=== PATIENT | male | born 1985 | race Caucasian/White ===

== ENCOUNTER 2022-09-14 06:46 | Emergency (ER) | payer OTHER, SELFPAY ==
[2022-09-14 06:54] VITALS: BP 170/109; PULSE 77; RESP 20; TEMP 36.5; O2SAT 98; BMI 36.9
--- NOTE | 2022-09-14 07:24 | ED_ITS ---
HPI - Skin/Abscess/Foreign Bdy General Chief complaint: Skin/Abscess/Foreign Body Stated complaint: ?Cyst, ingrown abdomen area Time Seen by Provider: 09/14/22 07:13 Source: patient Mode of arrival: ambulatory Limitations: no limitations History of Present Illness HPI narrative: 37-year-old male came in for evaluation of right groin pain and and right groin painful mass, stated that this started as a pimple like area that the patient try to pop with thick clear pus drainage patient was seen at an urgent care was started on cephalexin, patient been taking the antibiotic with no improvement. Sexually active with 1 partner decline any penile discharge. No fever, no chills. Related Data Previous Rx's Medication Instructions Recorded doxycycline hyclate 100 mg tablet 100 mg PO BID #20 tabs 09/14/22 Allergies Allergy/AdvReac Type Severity Reaction Status Date / Time No Known Allergies Allergy Verified 09/14/22 07:33 Review of Systems Review of Systems: All other systems are reviewed and are negative Constitutional: Reports as per HPI and Reports no additional constitutional complaints Eyes: Reports as per HPI and Reports no additional eye complaints Reports system reviewed and no additional complaints, except as documented Cardiovascular: Reports as per HPI and Reports no additional cardiovascular complaints Respiratory: Reports as per HPI and Reports no additional respiratory complaints Gastrointestinal: Reports as per HPI and Reports no additional gastrointestinal complaints Genitourinary: Reports no additional female genitourinary complaints Musculoskeletal: Reports no additional musculoskeletal complaints Skin/Breast: Reports system reviewed and no additional complaints, except as docu Psychiatric: Reports no additional psychiatric complaints Endocrine: Reports no additional endocrine complaints Hematologic/Lymphatic: Reports no additional hematologic/lymphatic complaints Allergic/Immunologic: Reports no additional allergic/immunologic complaints Reports system reviewed and no additional complaints, except as documented and Reports Abnormal speech present [facility] Social History Social History Alcohol intake: never Smoked in Last 30 Days: No Use of substances other than those prescribed or required for medical reasons: No Advance Directives: No Advance Directives Information Provided: No Physical Exam Vital Signs: Vital Signs: Last Vital Signs Temp 97.7 F 09/14/22 06:54 Pulse 77 09/14/22 06:54 Resp 20 09/14/22 06:54 BP 170/109 H 09/14/22 06:54 Pulse Ox 98 09/14/22 06:54 O2 Del Method 09/14/22 06:54 BMI result Body Mass Index 36.9 Vital signs have been reviewed as appeared to be correct. Blood pressure normal. Heart rate normal. Respiration rate normal. Temperature normal. Oxygen saturation normal. Appearance: Alert. Oriented X3. No acute distress. Head: Normal external exam. Normocephalic. Atraumatic. No Cannon signs noted. No raccoon eyes noted Eyes: PERRLA. EOMI. Conjunctiva and sclera normal. Eyelids normal. ENT: TM's Normal. Pharynx normal. Uvula midline. Moist mucous membranes. No trismus noted. No drooling noted. No muffled voice noted. Neck: Normal inspection. Neck supple. FROM. No adenopathy. Thyroid Normal. No meningeal signs. No neck mass noted. CVS: Normal heart rate and rhythm. Heart sound normal. No murmurs noted. Pulses normal throughout. Respiratory: No respiratory distress. Painless inspiration. Breath sounds normal. No wheezes/rales/rhonchi noted. Chest nontender. No accessory muscle usage noted or decreased air movement noted. Abdomen: Soft and nontender. Bowel sounds normal in all 4 quadrants. No distention noted. No organomegaly noted. No visible injury noted, 2 x 2 cm area of papular rash surrounded by area of redness and tenderness, no fluctuation, no abscess. Back: No CVA tenderness. Full range of motion noted. Skin: Skin warm and dry. Normal skin color. Normal skin turgor. No rashes/lesions/lacerations noted. Extremities: No lower extremity edema. Extremities exhibit normal range of motion. Extremities nontender. Neuro: Oriented X 3. Cranial nerve exam: II-XII are grossly intact No motor deficit. No sensory deficit. Reflexes normal. Course Course Course Narrative: 37-year-old male came in with right groin infected papular rash patient was star matty on Keflex at an urgent care, we will add doxycycline to the patient medication for extra coverage of MRSA. Patient was instructed to return if any fever chills or worsening of his symptoms. Medical Decision Making Differential Diagnosis Differential Diagnoses: The differential diagnosis associated with the presentation includes (STD, cellulitis, subcutaneous abscess.) Discharge Plan Discharge Clinical Impression: Cellulitis Patient Disposition: Home, Self-Care Instructions: Cellulitis (ED) Prescriptions: New doxycycline hyclate 100 mg tablet 100 mg PO BID Qty: 20 0RF Referrals: Robert Alfaro NP [Primary Care Provider] -
[2022-09-14 07:29] VITALS: BP 159/100; PULSE 79; RESP 18; TEMP 36.6; O2SAT 96
[2022-09-14 09:24] LABS: Appearance Urine Clear; Color Urine Yellow; Glucose Urine UA >=1000 mg/dL (Negative); Leukocyte Esterase Urine Negative (Negative); Nitrite Urine Negative (Negative); Specific Gravity - Urine >= 1.030 (1.005-1.025); UMIC TRIGGER UACC YES; Urine Blood Negative (Negative); Urine Ketones 15 mg/dL (Negative); Urine Protein 30 (1+) mg/dL (Neg-Trace)
[2022-09-14 09:26] LABS: Bacteria Urine None Seen (None Seen); Hyaline Casts Urine 0-2 /LPF (0-2); RBC Urine 0-2 /HPF (0-2); Squamous Epithelial Cell Urine 0-2 /HPF (0-2); WBC Urine 0-5 /HPF (0-5)
[2022-09-14 10:57] LABS: CT PCR NOT DETECTED (Not Detect.); NG PCR NOT DETECTED (Not Detect.)
== END 2022-09-14 09:19 | disposition home or self-care (01) ==
PROVIDERS: Emergency Provider Emergency Medicine; PCP Nurse Practitioner
DX: L03.314 Cellulitis of groin (principal); R10.31 Right lower quadrant pain
CPT/HCPCS: 0353U; 81001; 99283; 99284

== ENCOUNTER 2023-04-21 12:06 | Emergency (ER) | payer OTHER, SELFPAY ==
--- NOTE | ~2023-04-21 | XR_ITS ---
EXAMINATION: XR CHEST CLINICAL INFORMATION: Chest pain. COMPARISON: Chest radiographs dated 12/29/2013 (report only). TECHNIQUE: Frontal view of the chest was obtained. FINDINGS: No significant abnormality is noted involving the heart, lungs, mediastinum, bony thorax or soft tissues. A left shoulder arthroplasty is noted. XR/XR chest 1V IMPRESSION: Unremarkable examination.
--- NOTE | 2023-04-21 13:21 | ECG_ITS ---
Test Reason : chest pain Blood Pressure : / mmHG Vent. Rate : 072 BPM Atrial Rate : 072 BPM P-R Int : 146 ms QRS Dur : 100 ms QT Int : 394 ms P-R-T Axes : 023 -07 -15 degrees QTc Int : 431 ms Normal sinus rhythm Moderate voltage criteria for LVH, may be normal variant ( R in aVL , Bienvenido product ) Borderline ECG No previous ECGs available Referred By: Generic ED Physician Electronically Signed By:CARMEN OBRIEN MD
[2023-04-21 13:47] VITALS: BP 166/84; PULSE 70; RESP 18; TEMP 36.7; O2SAT 99; BMI 38.1
[2023-04-21 14:00] LABS: MANUAL DIFF FLAG NO
[2023-04-21 14:03] LABS: Basophils Percent Auto 0.3 % (0-2); Eosinophils Absolute Auto 0.1 X10*3/uL (0.0-0.4); Eosinophils Percent Auto 1.2 % (0-4); Hematocrit 43.2 % (42.0-52.0); Hemoglobin 15.1 g/dl (14.0-18.0); Imm Gran Abs Auto 0.05 X10*3/uL (0.00-0.03); Imm Gran Pct Auto 0.5 % (0.0-0.4); Lymphocytes Absolute Auto 2.4 X10*3/uL (1.2-4.9); Lymphocytes Percent Auto 22.8 % (20-40); Mean Corpuscular Hemoglobin 30.1 pg (27.0-33.0); Mean Corpuscular Volume 86.1 fL (80.0-98.0); Mean Platelet Volume 9.8 fL (9.4-12.4); Monocytes Absolute Auto 0.8 X10*3/uL (0.1-1.2); Monocytes Percent Auto 7.1 % (2-11); Neutrophils Absolute Auto 7.2 x10*3/uL (2.0-8.3); Neutrophils Percent Auto 68.1 % (45-73); Platelet Count 358 X10*3/uL (160-400); Red Blood Count 5.02 X10*6/uL (4.60-5.80); Red Cell Distribution Width 11.7 % (11.0-16.0); White Blood Count 10.5 X10*3/uL (4.8-10.8)
[2023-04-21 14:15] LABS: Anion Gap 20 (12-20); Blood Urea Nitrogen 9 mg/dL (9-16); Carbon Dioxide 17 mmol/L (22-29); Chloride 102 mmol/L (96-108); Creatinine Clr Calc Pharmacy 134.3; Estimated Glomerular Filt Rate > 60; Glucose Random 239 mg/dL (60-115); Potassium 3.7 mmol/L (3.3-5.1); Sodium 135 mmol/L (135-145)
[2023-04-21 14:24] LABS: Troponin-I High Sensitivity < 2.7 ng/L (<3.5-35.0)
[2023-04-21 19:19] VITALS: BP 147/89; PULSE 73; RESP 16; TEMP 36.7; O2SAT 99
[2023-04-21 20:05] LABS: Troponin-I High Sensitivity < 2.7 ng/L (<3.5-35.0)
--- NOTE | 2023-04-21 20:12 | ED.CHESTPAIN ---
HPI - Chest Pain General Chief Complaint: Chest Pain Stated Complaint: Chest Pain X 3 Days Time Seen by Provider: 04/21/23 20:11 Source: patient Mode of arrival: ambulatory Limitations: no limitations History of Present Illness HPI narrative: THIS IS A 38 YEARS OLD THE PATIENT PRESENTED TO THE EMERGENCY DEPARTMENT COMPLAINING OF CHEST WALL PAIN FOR ABOUT 3 DAYS. 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 complaint: chest pain Onset (ago): day(s) (3) Timing of current episode: constant Onset: during rest Pain location: substernal and left chest Pain radiation: none Quality: aching Relieving factors: nothing Exacerbating factors: palpation Risk Factors Coronary artery disease risk factors: hypertension Thoracic aortic dissection risk factors: none Related Data Previous Rx's Medication Instructions Recorded doxycycline hyclate 100 mg tablet 100 mg PO BID #20 tabs 09/14/22 Allergies Allergy/AdvReac Type Severity Reaction Status Date / Time No Known Allergies Allergy Verified 04/21/23 13:50 Review of Systems Review of Systems: Yes all other systems are reviewed and are negative ENT: Reports system reviewed and no additional complaints, except as documented Cardiovascular: Cardiovascular: Reports chest pain Respiratory: Respiratory: Reports no additional respiratory complaints Gastrointestinal: Gastrointestinal: Reports no additional gastrointestinal complaints [facility] Past Medical History Attestation statement: The following information was validated with the patient. [facility] Narrative: HISTORY OF HYPERTENSION Social History Social History Alcohol intake: never Advance Directives: No Advance Directives Information Provided: No Physical Exam Vital Signs: Vital Signs: Last Vital Signs Temp 98.0 F 04/21/23 19:19 Pulse 73 04/21/23 19:19 Resp 16 04/21/23 19:19 BP 147/89 H 04/21/23 19:19 Pulse Ox 99 04/21/23 19:19 O2 Del Method Room Air 04/21/23 19:19 BMI result Body Mass Index 38.1 HE LOOKS WELL IS NONTOXIC Const: General: cooperative Nutritional Appearance: well nourished Orientation/consciousness: patient oriented x3 Limitations: no limitations HEENT: Head: Yes normal to inspection Ears: hearing grossly normal bilaterally General nose exam: Normal external nose present Face and sinus: Yes normal facial exam Mouth: Normal oral and palatal mucosa present Teeth and gingiva: dentition normal Eyes: General: appearance normal, both eyes and all related structures EOM: EOMs intact bilaterally Chest: Chest palpation & inspection: normal inspection of the chest and localized rib tenderness with anteroposterior compression Resp: Effort & Inspection: normal respiratory effort Auscultation: clear to auscultation bilaterally Cardio: Jugular venous distension: no JVD Rate: regular rate Rhythm: regular rhythm GI: Inspection: Yes normal to inspection Palpation (GI): Soft to palpation, not firm and nontender Auscultation: normal bowel sounds Skin: General skin exam: no rashes or lesions noted, elasticity normal and turgor normal Neuro: General: patient oriented x3 Extrem: General: Yes normal to inspection Course Reevaluation(s) Reevaluation #1: FEELING BETTER CXR AND TROPI NEGATIVE PAIN REPRODUCIBLE WILL D/C HOME Time: 21:17 Medications Administered Discontinued Medications Generic Name Dose Route Start Last Admin Trade Name Freq PRN Reason Stop Dose Admin Ibuprofen 800 mg 04/21/23 20:17 04/21/23 20:24 Ibuprofen 800 Mg Tablet PO 04/21/23 20:18 800 mg ONCE ONE Administration Medical Decision Making Medical Decision Making [facility] Narrative: PATIENT PRESENTED WITH 3 DAYS HISTORY OF CHEST PAIN, NO EXERTIONAL, REPRODUCIBLE WITH PALPATION Differential Diagnosis Differential Diagnoses: The differential diagnosis associated with the presentation includes COSTOCHONDRITIS/PNEUMOTHORAX/KS Admission/Observation Consideration of admission/observation: Escalation of care including admission/observation considered Lab Data [facility] Lab Attestation statement: I reviewed the patient's lab results. 04/21/23 13:55 04/21/23 13:55 Labs: Lab Results 04/21/23 04/21/23 Range/Units 13:55 19:21 WBC 10.5 (4.8-10.8) X10*3/uL RBC 5.02 (4.60-5.80) X10*6/uL Hgb 15.1 (14.0-18.0) g/dl Hct 43.2 (42.0-52.0) % MCV 86.1 (80.0-98.0) fL MCH 30.1 (27.0-33.0) pg MCHC 35.0 (31.0-36.0) g/dl RDW 11.7 (11.0-16.0) % Plt Count 358 (160-400) X10*3/uL MPV 9.8 (9.4-12.4) fL Immature Gran % (Auto) 0.5 H (0.0-0.4) % Neut % (Auto) 68.1 (45-73) % Lymph % (Auto) 22.8 (20-40) % [place] % (Auto) 7.1 (2-11) % Eos % (Auto) 1.2 (0-4) % Baso % (Auto) 0.3 (0-2) % Lymph # (Auto) 2.4 (1.2-4.9) X10*3/uL [place] # (Auto) 0.8 (0.1-1.2) X10*3/uL Eos # (Auto) 0.1 (0.0-0.4) X10*3/uL Baso # (Auto) 0.0 (0.0-0.2) X10*3/uL Abs Immat Gran (auto) 0.05 H (0.00-0.03) X10*3/uL Absolute Neuts (auto) 7.2 (2.0-8.3) x10*3/uL Absolute Nucleated RBC 0.000 (0.0-0.012) X10*3/uL Nucleated RBC % (auto) 0.0 (0.0-0.2) /100WBC Sodium 135 (135-145) mmol/L Potassium 3.7 (3.3-5.1) mmol/L Chloride 102 (96-108) mmol/L Carbon Dioxide 17 L (22-29) mmol/L Anion Gap 20 (12-20) BUN 9 (9-16) mg/dL Creatinine 0.95 (0.5-1.4) mg/dL Estim Creat Clear Calc 134.3 Estimated GFR > 60 Random Glucose 239 H (60-115) mg/dL Calcium 9.0 (8.4-10.2) mg/dL Troponin I High Sens < 2.7 < 2.7 (<3.5-35.0) ng/L Independent Interpretation I performed an independent interpretation of an: EKG (RHYTHM RATE [address]-T CHANGES) Chronic Conditions Patient?s care impacted by: Hypertension Discharge Plan Discharge Clinical Impression: Chest pain Patient Disposition: Home, Self-Care Instructions: Chest Pain (DC) Additional Instructions: FOLLOW-UP WITH YOUR PRIMARY CARE PHYSICIAN RETURN TO EMERGENCY ROOM IF YOU WORSE ANY CONCERN Prescriptions: No Action doxycycline hyclate 100 mg tablet 100 mg PO BID Qty: 20 0RF Referrals: Robert Alfaro NP [Primary Care Provider] - 2 days Stand Alone Forms: Work/School Release Interventions: ED Discharge Assessment Last Done: 04/21/23 21:21 Discharge Date/Time: 04/21/23 21:22
[2023-04-21] MEDS: Ibuprofen 800 MG TABLET PO (20:24)
== END 2023-04-21 21:22 | disposition home or self-care (01) ==
PROVIDERS: Emergency Provider Emergency Medicine; PCP Nurse Practitioner
DX: R07.89 Other chest pain (principal); I10 Essential (primary) hypertension; Z79.899 Other long term (current) drug therapy
CPT/HCPCS: 36415; 71045; 80048; 84484; 85025; 93005; 99283; 99284

== ENCOUNTER 2025-05-14 07:24 | Emergency (ER) | payer OTHER, SELFPAY ==
--- NOTE | ~2025-05-14 | XR_ITS ---
EXAMINATION: XR KNEE, LEFT CLINICAL INFORMATION: pain COMPARISON: None available. TECHNIQUE: AP oblique and lateral views of the left knee. FINDINGS: Exostosis at the inferior patellar/patella tendon insertion. Small marginal osteophyte formation and medial tibial plateau. No acute cortical disruption or malalignment. No suprapatellar bursa joint effusion. No subcutaneous edema. No metallic or radiopaque foreign body. No lytic or lasting lesions. XR/XR knee LT 4V IMPRESSION: Mild bicompartmental osteoarthrosis/osteoarthritis. Enthesopathy, patellar tendon. Electronically signed by: Alfredito Singh MD 05/14/2025 07:54 AM EST
[2025-05-14 07:28] VITALS: BP 154/84; PULSE 77; RESP 16; TEMP 36.1; O2SAT 97; BMI 37.1
--- NOTE | 2025-05-14 07:49 | ED.EXTPRO ---
HPI - Extremity Problem General Chief complaint: Extremity Problem Stated complaint: L knee pain x 1 month Time Seen by Provider: 05/14/25 07:48 Source: patient Mode of arrival: ambulatory Limitations: no limitations History of Present Illness ED Provider: NEIL DANG PA-C HPI Narrative: 40-year-old male with no significant pmhx presents to the ED today for evaluation of left knee pain x1 month. Reports pain has been intermittent. Localized to the front of his left knee, no radiation. Reports feeling a cracking sensation at times. Intermittently appears swollen. Denies any redness. He has been taking Tylenol without much improvement. Denies blunt injury/trauma/falls. Denies hx gout. Denies fever, chills, numbness/tingling/weakness of the LLE. No recent travel/ long car rides. Denies calf pain, leg swelling. Related Data Previous Rx's ?Medication ?Instructions ?Recorded doxycycline hyclate 100 mg tablet 100 mg PO BID #20 tabs 09/14/22 prednisone 20 mg tablet 60 mg (3 x 20 mg) PO DAILY 5 days 05/14/25 #15 tabs Allergies Allergy/AdvReac Type Severity Reaction Status Date / Time No Known Allergies Allergy Verified 05/14/25 07:29 Review of Systems Review of Systems: Yes all other systems are reviewed and are negative PMFSH Past Medical History Attestation statement: The following information was validated with the patient. Source: old records reviewed and nursing notes reviewed Social History Social History Alcohol intake: never Advance Directives: No Advance Directives Information Provided: Yes Physical Exam Vital Signs: Vital Signs: Last Vital Signs Temp 97.0 F 05/14/25 08:32 Pulse 77 05/14/25 08:32 Resp 16 05/14/25 08:32 BP 154/84 H 05/14/25 08:32 Pulse Ox 97 05/14/25 08:32 O2 Del Method Room Air 05/14/25 08:32 BMI result Body Mass Index 37.1 hypertensive, vitals are otherwise wnl General: Well appearing, in no acute distress. Skin: Warm, dry, intact. No rashes or lesions. Head: Normocephalic, atraumatic. EENT: Hearing is intact b/l. Conjunctiva clear. PERRLA. EOM intact. Moist mucous membranes.? Cardiac: Chest wall symmetric. RRR Lungs: Normal respiratory effort without accessory muscle use Ext: + left knee without overlying skin changes, deformity, swelling. Full ROM intact with extension/flexion, no pain induced. No palpable deformity, crepitus, warmth, fluctuance. 2+ dp and popliteal pulses. Neuro: AOx3. Normal speech. Ambulating with steady gait. Medications Administered Discontinued Medications Generic Name Dose Route Start Last Admin Trade Name Georgie PRN Reason Stop Dose Admin Ketorolac Tromethamine 30 mg 05/14/25 08:05 05/14/25 08:26 Ketorolac Tromethamine 30 Mg/Ml Vial IM 05/14/25 08:06 30 mg ONCE ONE Administration Medical Decision Making Medical Decision Making MDM Narrative: 40-year-old male with no significant pmhx presents to the ED today for evaluation of left knee pain x1 month. hypertensive, vitals are otherwise wnl. he is well appearing, sitting comfortably. ambulating with steady gait. on exam, left knee without overlying skin changes, deformity, swelling. Full ROM intact with extension/flexion, no pain induced. No palpable deformity, crepitus, warmth, fluctuance. 2+ dp and popliteal pulses. Differential diagnosis includes arthritis, tendonitis, bursitis, MSK sprain/strain. Unlikely gout, pseudogout, Lyme arthritis, DVT, popliteal cyst, neurovascular compromise, threat to limb. Plan for x-rays, pain control and re-evaluation. Differential Diagnosis Differential Diagnoses: The differential diagnosis associated with the presentation includes as above. Admission/Observation Not indicated Independent Interpretation I performed an independent interpretation of an: Plain X-Ray Interpretation: X-ray L knee without fracture Radiology Impression Discussion of test interpretation with radiology: I have reviewed the radiologist's reading. Radiologist Impression: Procedure(s): XR knee LT 4V Accession Number(s): [id number] cc: Ava Adan DO; Randal Ledezma DO~ Reason for Exam: pain EXAMINATION: XR KNEE, LEFT CLINICAL INFORMATION: pain COMPARISON: None available. TECHNIQUE: AP oblique and lateral views of the left knee. FINDINGS: Exostosis at the inferior patellar/patella tendon insertion. Small marginal osteophyte formation and medial tibial plateau. No acute cortical disruption or malalignment. No suprapatellar bursa joint effusion. No subcutaneous edema. No metallic or radiopaque foreign body. No lytic or lasting lesions. XR/XR knee LT 4V IMPRESSION: Mild bicompartmental osteoarthrosis/osteoarthritis. Enthesopathy, patellar tendon. Electronically signed by: Alfredito Singh MD 05/14/2025 07:54 AM EST Prescription Management I considered prescription management with: Other (prednisone) Social Determinants Patient?s care significantly limited by Social Determinants of Health including: Other Social Determinant of Health Critical Care Time Critical Care Time Critical Care Time: No Discharge Plan Discharge Clinical Impression: Left knee pain Patient Disposition: Home, Self-Care Instructions: Knee Pain (ED), Arthralgia (ED) Additional Instructions: You were evaluated in the ED today for left knee pain. The xray of your left knee shows inflammatory/ arthritic changes. No fractures. Your exam is reassuring. You were treated with an anti inflammatory in the ED today. I am sending you home on a 5 day course of prednisone to help with any inflammation/ pain. Please follow up with your PCP, you may require physical therapy. They will be able to prescribe this I have also provided you with a referral to an orthopedic doctor. You may call them to establish care. Return with any new or worsening symptoms. In the case of an emergency call 911. XR knee LT 4V IMPRESSION: Mild bicompartmental osteoarthrosis/osteoarthritis. Enthesopathy, patellar tendon. Prescriptions: New prednisone 20 mg tablet 60 mg PO DAILY 5 Days Qty: 15 0RF No Action doxycycline hyclate 100 mg tablet 100 mg PO BID Qty: 20 0RF Referrals: [facility] [Provider Group] Randal Ledezma DO [Primary Care Provider, Medical] Interventions: ED Discharge Assessment Last Done: 05/14/25 08:32 Discharge Date/Time: 05/14/25 08:32 Print Language: [place]
--- OUTSIDE RECORDS SUMMARY | 2025-05-14 07:50 | XMS_ITS | Data Portability ---
Author Organization [facility] [address] Address [address] [place] [address] Assessment No assessment recorded. Plan of Treatment Reminders Order Date Submit Date Provider Last Modified By Organization Details Last Modified Time Details Appointments None recorded. Lab None recorded. Referral None recorded. Procedures None recorded. Surgeries None recorded. Imaging None recorded. Medication Orders cephalexin 500 mg capsule 2022 023 [facility][id number], [address] [place], [address], 11:09:57 Patient TargetsNo targets recorded. Patient Instructions Encounter Date Encounter Id Patient Instructions Last Modified By Organization Details Last Modified Time 09/12/2022 [id number] A skin abscess i s a bacterial infection that forms a pocket of pus. A boil is a kind of skin abscess. The doctor may have cut an opening in the abscess so that the pus can drain out. You may have gauze in the cut so that the abscess will stay open and keep draining. You may need antibiotics. You will need to follow up with your doctor to make sure the infection has gone away. The doctor has checked you carefully, but problems can develop later. If you notice any problems or new symptoms, get medical treatment right away. How can you care for yourself at home? Apply warm and dry compresses, a heating pad set on low, or a hot water bottle 3 or 4 times a day for pain. Keep a cloth between the heat source and your skin. If your doctor prescribed antibiotics, take them as directed. Do not stop taking them just because you feel better. You need to take the full course of antibiotics. Take pain medicines exactly as directed. If the doctor gave you a prescription medicine for pain, take it as prescribed. If you are not taking a prescription pain medicine, ask your doctor if you can take an erhf-gyf-ufsrpsy medicine. Keep your bandage clean and dry. Change the bandage whenever it gets wet or dirty, or at least one time a day. If the abscess was packed with gauze: Keep follow-up appointments to have the gauze changed or removed. If the doctor instructed you to remove the gauze, follow the instructions you were given for how to remove it. After the gauze is removed, soak the area in warm water for 15 to 20 minutes 2 times a day, until the wound closes. [email or web address] Not available 09/12/2022 11:09:55 Reason for Referral None Reported. Problems Name Problem SNOMED Code Status Onset Date Resolution Date Notes Provider Name and Address Organization Details Recorded Time Essential hypertension 40117439 Active 2022 IRIS COUVERTRAMYA R null, PA - [facility] 3 10:32:03 Diabetes mellitus 22836037 Active 2022 IRIS COUVERTRAMYA R null, PA - [facility] 3 10:32:10 Problem Notes None recorded. Procedures Surgical History Date Name Laterality Status Provider Name and Address Organization Details Recorded Time Appendectomy completed IRIS COUVERTENMANUEL PA - [facility] 09/12/2022 10:33:25 total shoulder replacement completed IRIS COUVERTIER PA - [facility] 09/12/2022 10:33:47 Imaging Results None recorded. Procedure Notes None recorded. Medical Equipment None Reported. Allergies No known drug allergies Medications Name Sig Start Date Stop Date Status Note LastModified by Organization Details LastModified Time metformin 500 mg tablet TAKE 1 TABLET BY MOUTH TWICE A DAY 09/12 completed Not Available Not Available Not Available miconazole nitrate 2 % topical cream APPLY TOPICALLY 2 TIMES A DAY,X7 DAYS 09/12 completed Not Available Not Available Not Available valacyclovi r 1 gram tablet TAKE 1 TABLET BY MOUTH TWICE A DAY FOR 10 DAYS 09/12 completed Not Available Not Available Not Available lisinopril 20 mg tablet TAKE 1 TABLET BY MOUTH EVERY DAY active Not Available Not Available No t Available ciprofloxac in 500 mg tablet TAKE 1 TABLET BY MOUTH TWICE A DAY 09/12 completed Not Available Not Available Not Available pantoprazol e 20 mg tablet,mindi yed release TAKE 1 TABLET BY MOUTH EVERY DAY 09/12 completed Not Available Not Available Not Available hydrocortis one 2.5 % topical cream with perineal applicator APPLY 1 GRAM TO THE SKIN FOUR TIMES A DAY NEEDED EXTERNALL Y TO HEMORRHOI D AFTER BOWEL MOVEMENT 09/12 completed Not Available Not Available Not Available cephalexin 500 mg capsule Take 1 capsule every 8 hours by oral route with meals for 10 days. 2022 active Not Available Not Available Not Avai lable oxycodone 5 mg tablet TAKE 1 TABLET BY MOUTH EVERY 6 HOURS NEEDED FOR PAIN 09/12 completed Not Available Not Available Not Available Jardiance 25 mg tablet TAKE 1 TABLET BY MOUTH EVERY DAY IN THE MORNING active Not Available Not Available No t Available Vitals Date Recorded Body height Body mass index (BMI) Body weight Body temperature Respiratory rate Heart rate Oxygen saturation Oxygen saturation in Arterial blood by Pulse oximetry Systolic And Diastolic Provider Name and Address Organization Details Last Updated DateTime 175.26 cm 36.9 kg/m2 549679. 09 g 98.5 [degF] 20 /min 84 /min 97 % 97 % 146/88 mm[Hg] MAMTA Simon PA - [facility] 10:36:34 Social History Question Answer Notes LastModified by [employer] Details LastModified Time Tobacco Smoking Status Never Smoker LU Johnson [facility] 09/12/2022 10:33:08 What Is Your Water Source? City Information not available 09/12/2022 What Is Your Heat Source? Gas Information not available 09/12/2022 Have You Had Direct Contact, Or Contact During Intimacy, With Monkeypox Rash, Scabs, Or Body Fluids From A Person With Monkeypox? No Information not available 09/12/2022 Have You Recently Traveled Abroad? No Information not available 09/12/2022 Sex: Unknown Functional Status Question Answer Note LastModified by [employer] Details LastModified Time Do you use any illicit or recreational drugs? No Information not available 09/12/2022 Do you or have you ever used any other forms of tobacco or nicotine? No Information not available 09/12/2022 What is your level of alcohol consumption? Occasional Information not available 09/12/2022 Mental Status None recorded. Family History Relationship Description Onset Age of this Age Resolved Age Notes LastModified by Organization Details LastModified Time Father No current problems or disability Not available 10:32:32 Father Hypertensive disorder Not available 10/2022 10:32:49 Mother No current problems or disability Not available 10:32:32 Maternal Grandmother Diabetes mellitus Not available 10/2022 10:33:00 Medical History No medical history recorded. Past Encounters Encounter ID Performer Location Encounter Start Date Encounter Closed Date Diagnosis/Indication Diagnosis SNOMED-CT Code Diagnosis ICD10 Code Diagnosis IMO Codes Diagnosis Note [id number] [address] [place] [address] 09/11/2017 10:51:06 09/11/2017 12:13:33 [id number] [address] [place] [address] 06/01/2020 10:00:02 06/01/2020 14:20:20 [id number] [address] [place] [address] 07/25/2018 13:37:47 07/25/2018 14:19:35 [id number] [address] [place] [address] 10/12/2020 16:21:31 10/12/2020 16:46:15 [id number] [address] [place] [address] 08/09/2020 11:59:12 08/09/2020 14:19:18 [id number] Ovidio Coker [facility] [address] [address] [place] [address] SABRINA Cervantes [address] 09/12/2022 09:15:19 09/12/2022 11:15:11 Cellulitis and abscess of abdominal wall 099843120 L02.211 Health Concerns Section Related Observation LastModified by Organization Detai ls LastModified Time None Recorded Concern Status LastModified by Organization Details LastModified Time None Recorded Advance Directives Directive None Recorded Payers Insurance Date Sequence Insurance Name Policy Number Policy العلي Covered Member ID العلي Member ID Guarantor Name 09/12/2022 1 [facility] [employer] - HEALTH NET PLAN (MEDICAID HMO) [id number] Kareem Zelaya [id number] Kareem Zelaya Notes Date Note Type Note Provider Name and Address Organization Details Recorded Time 09/12/2022 text/html small abscess below umbilicus measuring 3 x 3 cm x 4-5 days. erythema, tender upon palpation , no drainage . patient is diabetic. Ovidio Coker NP [address] [place], [address], PA - [facility] 09/12/2022 11:10:15
--- OUTSIDE RECORDS SUMMARY | 2025-05-14 07:50 | XMS_ITS | Clinical Summary ---
Author Organization [facility] Address [address] [address] Phone Care Team Providers Care Mold Stacker Name Role Phone Conor Hardwick Jp, MD Primary Care Provider [phone] Allergies No known active allergies Medications citalopram (CELEXA) 40 MG tablet Take 40 mg by mouth daily. Active amLODIPine (NORVASC) 10 MG tablet Take 10 mg by mouth daily. Active lisinopril (PRINIVIL,ZESTRIL) 20 MG tablet Take 20 mg by mouth daily. Active aspirin 325 MG tablet Take 1 tablet (325 mg total) by mouth daily. 28 tablet 8 Active docusate sodium (COLACE) 100 MG capsule Take 1 capsule (100 mg total) by mouth 2 (two) times a day. 40 capsule 8 Active ondansetron (ZOFRAN-ODT) 4 MG disintegrating tablet Take 1 tablet (4 mg total) by mouth every 6 (six) hours as needed. 20 tablet 8 Active oxyCODONE 5 MG immediate release tablet Take 1-2 tablets (5-10 mg total) by mouth every 4 (four) hours as needed for moderate pain. Pt. may request partial fill 50 tablet 8 Active Active Problems Problem Noted Date Diagnosed Date Shoulder arthritis 11/16/2017 Hypertension 05/24/2017 Primary osteoarthritis of left shoulder 04/28/20 17 Social History Tobacco Use Types Packs/Day Years Used Date Smoking Tobacco: Never Smokeless Tobacco: Never Alcohol Use Standard Drinks/Week Comments Yes 0 (1 standard drink = 0.6 oz pur e alcohol) occaissonally Education Answer Date Recorded Are you interested in more education? Not on halie e 11/06/2022 Are you concerned about learning? Not on file 11/06/2022 No 11/06/2022 No 11/06/2022 Digital Access Answer Date Recorded No 12/07/2022 No 12/07/2022 No 12/07/2022 Reliable internet access at home? Not on file 12/07/2022 Device with a working camera? Not on file Sex and Gender Information Value Date Recorded Sex Assigned at Not on file Legal Sex Male 2:54 PM EDT Gender Identity Not on file Sexual Orientation Not on file Last Filed Vital Signs Vital Sign Reading Time Taken Comments Blood Pressure 154/72 11/17/2017 11:35 AM EDT Pulse 62 11/17/2017 11:35 AM EDT Temperature 36.1 C (96.9 F) 11/17/2017 11:35 AM EDT Respiratory Rate 18 11/17/2017 11:35 AM EDT Oxygen Saturation 96% 11/17/2017 11:35 AM EDT Inhaled Oxygen Concentration - - Weight 108.9 kg (240 lb) 11/16/2017 10:42 AM EDT Height 179.8 cm (5' 10.8 ) 11/16/2017 10:42 AM E DT Body Mass Index 33.66 11/16/2017 10:42 AM EDT Plan of Treatment Health Maintenance Due Date Last Done Comments Adult Td,Tdap Booster 1986 BLOOD PRESSURE 1986 LIPID PANEL 1986 DEPRESSION SCREENING 1998 HEPATITIS C SCREENING 01/08/2004 HIV ONE-TIME SCREENING (18-6 5 YEARS) 01/08/2004 CREATININE LEVEL 11/17/2018 11/17/2017, 11/11/2017 POTASSIUM LEVEL 11/17/2018 11/17/2017, 11/11/2017 INFLUENZA VACCINE (#1) 2025 COVID-19 VACCINE (2 - 2024-2 6 season) 2025 10/14/2020 SMOKING STATUS SCREENING (On ce After 26 Yrs) Completed 11/16/2017 HEPATITIS A VACCINES Aged Out No long er eligible based on patient's age to complete this topic HIB VACCINES Aged Out No longer eligi ble based on patient's age to complete this topic MENINGOCOCCAL VACCINES (ACWY) Aged Out No longer eligible based on patient's age to complete this topic MENINGOCOCCAL VACCINES (B) Aged Out N o longer eligible based on patient's age to complete this topic PNEUMOCOCCAL VACCINES (0-49 years) Aged Out No longer eligible b ased on patient's age to complete this topic Medical Devices Implanted Type Area Threader Device Identifier Shelf Expiration Date Model / Serial / Lot Plate Bone 420mm Button Sterile Titanium 7 Hole Ea - [id number] Implanted:Qty: 1 on 11/16/2017 by César Laguerre MD at [facility] NODATA Left: Shoulder SYNTHES 482.823 / / Description:no lot# or exp d ate Head Humeral Simpliciti 48 X 18 - [id number] Implanted:Qty: 1 on 11/16/2017 by César Laguerre MD at [facility] Left: Shoulder [employer] 12/23/2021 [id number] / [id number] / Nucleus Cementless Sz3 Simpliciti Ea - [id number] Implanted:Qty: 1 on 11/16/2017 by César Laguerre MD at [facility] Left: Shoulder [employer] 05/17/2022 [id number] / [id number] / Aequalis Perform Glenoid Cortiloc M40 Shoulder 02 Nc - [id number] Implanted:Qty: 1 on 11/16/2017 by César Laguerre MD at [facility] Left: Shoulder [employer] 12/18/2021 [id number] / [id number] / Cement Bone 40gr Palacos R Plus G Single Dose Daron/1ea - [id number] Implanted:Qty: 1 on 11/16/2017 by César Laguerre MD at [facility] Left: Shoulder BRAYDEN / [employer] 11/08/2020 [id number] / [id number] Procedures Procedure Name Priority Date/Time Associated Diagnosis Comments BASIC METABOLIC PANEL (BMP) Routine 11/17/2017 4:40 AM EDT from Last 3 Months or Most Recently Relevant to Health Maintenance Results * (ABNORMAL) Basic metabolic panel (11/17/2017 4:40 AM EDT) SODIUM 134(L) 135 - 145 mmol/L [facility] POTASSIUM 4.2 3.4 - 5.0 mmol/L [facility] CHLORIDE 98 98 - 108 mmol/L [facility] CO2 21(L) 23 - 32 mmol/L [facility] BUN 9 8 - 25 mg/dL [facility] CREATININE 0.85 0.60 - 1.50 mg/dL [facility] GLUCOSE 162(H) 70 - 110 mg/dL [facility] CALCIUM 8.7 8.5 - 10.5 mg/dL [facility] EGFR 116 >59 mL/min/1. 73m2 [facility] Comment:If patient is black, multiply result by 1.159. Estimated glomerular filtration rate calculated using the CKD-EPI equation. ANION GAP 15 3 - 17 mmol/L [facility] Blood 11/17/2017 4:40 AM EDT 11/17/2017 5:34 AM EDT us César Laguerre MD LAB BLOOD BKR ORDERABLES Final Result [address] [address] from Last 3 Months or Most Recently Relevant to Health Maintenance Insurance [facility] S5 TechHEALTH MCO mInfo [employer]SS[employer]Spark[employer] MCO S5 TechHEALTH MCO S5 TechHEALTH MCO Bright!Tax MCO Bright!Tax O S5 TechF F [facility] M[facility] Advance Directives For more information, please contact: [phone] (9AM - 5PM [facility], Wednesday-Wednesday) * Full Code (Presumed) (Latest Code Status on File) Date Activated Date Inactivated Comments 11/16/2017 5:29 PM 11/17/2017 4:23 PM Care Teams Mold Stacker Relationship Specialty Start Date End Date Conor Hardwick Jp, MD [email or web address] PCP - General Orthopedic Surgery 05/11/17 Additional Source Comments The information contained in this document represents components of the legal health record. It is not the complete legal health record.[facility]
--- OUTSIDE RECORDS SUMMARY | 2025-05-14 07:50 | XMS_ITS | Encounter Summary ---
Author Organization [facility] Address [address] [place] [address] Phone Care Team Providers Care Medical Administrative Technician Name Role Phone Randal Ledezma DO Primary Care Provide r Conor Hardwick Jp, MD Primary Care Provider [phone] Encounter Details Date Type Department Care Team (Late st Contact Info) Description 04/28/2017 Procedure Pass [facility] [address] [place] [address] Social History Tobacco Use Types Packs/Day Years Used Date Smoking Tobacco: Never Smokeless Tobacco: Never Alcohol Use Standard Drinks/Week Comments No 0 (1 standard drink = 0.6 oz pur e alcohol) Sex and Gender Information Value Date Recorded Sex Assigned at Not on file Legal Sex Male 2:54 PM EDT Gender Identity Not on file Sexual Orientation Not on file documented as of this encounter Plan of Treatment Not on file documented as of this encounter Visit Diagnoses Not on filedocumented in this encounter Care Teams Medical Administrative Technician Relationship Specialty Start Date End Date Randal Ledezma DO [address] [place] [id number] PCP - General Internal Medicine 02/11/17 05/10/17 Conor Hardwick Jp, MD [address] [place] [id number] [email or web address] PCP - General Orthopedic Surgery 05/11/17 documented as of this encounter Additional Source Comments The information contained in this document represents components of the legal health record. It is not the complete legal health record.[facility]
--- OUTSIDE RECORDS SUMMARY | 2025-05-14 07:50 | XMS_ITS | Clinical Summary ---
[facility] Organization [facility] Address [address] [place] [address] Care Team Providers Care Assembler Bicycle Name Role Phone Unavailable Primary Care Provider Unavailabl e Social History Tobacco Use Types Packs/Day Years Used Date Smoking Tobacco: Never Assessed Sex and Gender Information Value Date Recorded Sex Assigned at Not on file Legal Sex Male 2:56 PM EST Gender Identity Not on file Sexual Orientation Not on file Plan of Treatment Health Maintenance Due Date Last Done Comments Hepatitis B Vaccines (1 of 3 - 19+ 3-dose series) 2005 HPV Vaccines (1 - 3-dose SCD M series) 2013 DTaP,Tdap,and Td Vaccines (2 - Td or Tdap) 10/12/2019 10/11/2009 Depression Screening 07/12/2024 COVID-19 Vaccine (1 - 2023-2 5 season) 2025 Influenza Vaccine (#1) 2025 RSV Immunization Adult Patie nts (1 - 1-dose 75+ series) 2061 HIB Vaccines Aged Out No longer eligi ble based on patient's age to complete this topic Hepatitis A Vaccines Aged Out No long er eligible based on patient's age to complete this topic IPV Vaccines Aged Out No longer eligi ble based on patient's age to complete this topic MMR Vaccines Aged Out No longer eligi ble based on patient's age to complete this topic Meningococcal ACWY Vaccine Aged Out N o longer eligible based on patient's age to complete this topic Meningococcal B Vaccine Aged Out No l onger eligible based on patient's age to complete this topic Pneumococcal Vaccine: Pediat rics (0 to 5 Years) and At-Risk Patients (6 to 49 Years) Aged Out No longer eligi ble based on patient's age to complete this topic RSV Immunization Patients Un gracie 20 months Aged Out No longer eligible b ased on patient's age to complete this topic Varicella Vaccines Aged Out No longer eligible based on patient's age to complete this topic
--- OUTSIDE RECORDS SUMMARY | 2025-05-14 07:50 | XMS_ITS | Encounter Summary ---
Author Organization [facility] Address [address] [place] [address] Phone Care Team Providers Care Yacht Master Name Role Phone Randal Ledezma DO Primary Care Provide r Conor Hardwick Jp, MD Primary Care Provider [phone] Encounter Details Date Type Department Care Team (Late st Contact Info) Description 03/12/2017 Procedure Pass [facility] [address] [place] [address] Social History Tobacco Use Types Packs/Day Years [...] on filedocumented in this encounter Care Teams Yacht Master Relationship Specialty Start Date End Date Randal Ledezma DO [address] [address] PCP - General Internal Medicine 02/11/17 05/10/17 Conor Hardwick Jp, MD [address] [facility] [address] [place] [address] [email or web address] PCP - General Orthopedic Surgery 10/31/17 documented as of this encounter Additional Source Comments The information contained in this document represents components of the legal health record. It is not the complete legal health record.[facility]
--- OUTSIDE RECORDS SUMMARY | 2025-05-14 07:50 | XMS_ITS | Encounter Summary ---
Author Organization [facility] Address [address] [facility] [address] [place] [address] Phone Care Team Providers Care Buildings And Grounds Director Name Role Phone Conro Hardwick Jp, MD Primary Care Provider [phone] Encounter Details Date Type Department Care Team (Late st Contact Info) Description 11/16/2017 Procedure Pass [facility] [address] [place] [address] Social History Tobacco Use Types Packs/Day Years Used Date Smoking Tobacco: Never Smokeless Tobacco: Never Alcohol Use Standard Drinks/Week Comments Yes 0 (1 standard drink = 0.6 oz pur e alcohol) occaissonally Sex and Gender Information Value Date Recorded Sex Assigned at Not on file Legal Sex Male 2:54 PM EDT Gender Identity Not on file Sexual Orientation Not on file documented as of this encounter Plan of Treatment Not on file documented as of this encounter Visit Diagnoses Not on filedocumented in this encounter Care Teams Buildings And Grounds Director Relationship Specialty Start Date End Date Conor Hardwick Jp, MD [email or web address] PCP - General Orthopedic Surgery 05/11/17 documented as of this encounter Additional Source Comments The information contained in this document represents components of the legal health record. It is not the complete legal health record.[facility]
--- OUTSIDE RECORDS SUMMARY | 2025-05-14 07:50 | XMS_ITS | Encounter Summary ---
Author Organization [facility] Address [address] [place] [address] Phone Care Team Providers Care Lithographic Photographer Apprentice Name Role Phone Conor Hardwick Jp, MD Primary Care Provider [phone] Encounter Details Date Type Department Care Team (Late st Contact Info) Description 06/02/2017 Procedure Pass [facility] [place] [address] [facility], [address] [place] [address] Social History Tobacco Use Types Packs/Day Years [...] on filedocumented in this encounter Care Teams Lithographic Photographer Apprentice Relationship Specialty Start Date End Date Conor Hardwick Jp, MD [email or web address] PCP - General Orthopedic Surgery 05/11/17 documented as of this encounter Additional Source Comments The information contained in this document represents components of the legal health record. It is not the complete legal health record.[facility]
[2025-05-14 08:32] VITALS: BP 154/84; PULSE 77; RESP 16; TEMP 36.1; O2SAT 97
== END 2025-05-14 08:32 | disposition home or self-care (01) ==
PROVIDERS: Emergency Provider Emergency Medicine; PCP Internal Medicine
DX: M25.562 Pain in left knee (principal); I10 Essential (primary) hypertension
CPT/HCPCS: 73564; 96372; 99283; 99284; J1885

== ENCOUNTER → 2025-05-14 07:38 | Outpatient (BNV) | payer OTHER, SELFPAY | PROVIDERS: Emergency Provider Emergency Medicine; PCP Internal Medicine; Visit Provider Radiology Diagnostic Radiology | DX: M25.562 Pain in left knee (principal) | CPT/HCPCS: 73564 ==

== ENCOUNTER 2025-06-15 15:32 | Emergency (ER) | payer OTHER, SELFPAY ==
--- NOTE | ~2025-06-15 | CT_ITS ---
EXAMINATION: CT ABDOMEN AND PELVIS WITHOUT CONTRAST CLINICAL INFORMATION: Flank pain, hematuria, history of renal stones. COMPARISON: None available. TECHNIQUE: Multidetector volumetric imaging was performed from the superior aspect of the liver through the pubic symphysis. Sagittal and coronal reformatted images were obtained on the technologist's workstation. This CT examination was performed using dose optimization techniques as appropriate, variously including the following: *Automated exposure control *Adjustment of mA and/or kV according to patient size (this includes techniques or standardized protocols for targeted exams where dose is matched to indication/reason for exam; i.e. extremities or head) *Use of iterative reconstruction technique FINDINGS: LUNG BASES: The visualized lung bases are unremarkable. LIVER, GALLBLADDER, AND BILIARY TREE: The unenhanced liver is normal in size, shape, and attenuation. No focal hepatic lesion or biliary ductal dilatation is present. The gallbladder is contracted but otherwise appears normal. PANCREAS: Unremarkable. SPLEEN: Unremarkable. ADRENAL GLANDS: Unremarkable. KIDNEYS AND URETERS: The kidneys are normal in size, shape, and attenuation. No hydronephrosis, hydroureter, or calculi seen. No perinephric stranding. BLADDER: Unremarkable. GASTROINTESTINAL TRACT: The stomach is distended with a recent meal. The duodenum is normal. The small bowel is normal in caliber and course without wall thickening or dilatation. Normal appendix is visualized. Mobile cecum noted. The colon is normal in caliber, course, and appearance. No wall thickening or inflammation. The rectum has a normal appearance. PERITONEUM: No free air or ascites. ABDOMINAL WALL: Normal. There is no significant hernia present. LYMPH NODES: No abnormal lymphadenopathy is present. VASCULAR: Unremarkable. PELVIC VISCERA: The prostate and seminal vesicles are unremarkable. OSSEOUS STRUCTURES: No suspicious lytic or blastic bone lesions. Mild degenerative changes of the hip joints noted. CT/CT abdomen pelvis wo IV con IMPRESSION: 1. No urological calculus or obstruction identified. No acute findings in the abdomen or pelvis. 2. Mild degenerative changes in the bilateral hip joints. Electronically signed by: Hakeem Gasca MD 06/15/2025 04:48 PM [facility]
[2025-06-15 15:51] VITALS: BP 180/89; PULSE 86; RESP 18; TEMP 36.2; O2SAT 98; BMI 40.1
--- NOTE | 2025-06-15 15:51 | ED_ITS ---
HPI - General Adult General Chief complaint: Urogenital-Male Stated complaint: Vomiting blood Time Seen by Provider: 06/15/25 18:22 Source: patient Mode of arrival: ambulatory Limitations: no limitations History of Present Illness ED Provider: Carlene Helm PA-C HPI narrative: Patient is a 40 year old assigned male at with a history of diabetes and kidney stones presenting to the emergency department today after having blood in his urine. Patient states that this morning he urinated a white stone like structure out and had blood in his urine afterwards. Patient states that he is not having any pain or other penile discharge. Patient states that he was told by his primary care provider that he had kidney stones and they'd pass on his own. Patient states that he was concerned because he is continuing to have blood in his urine even after he believes he passed the stone. . Patient denies any other complaints at this time. Relieving factors: none Exacerbating factors: none Treatments prior to arrival: none Related Data Previous Rx's ?Medication ?Instructions ?Recorded doxycycline hyclate 100 mg tablet 100 mg PO BID #20 ta bs 09/14/22 prednisone 20 mg tablet 60 mg (3 x 20 mg) PO DAILY 5 days 05/14/25 #15 tabs Allergies Allergy/AdvReac Type Severity Reaction Status Date / Time No Known Allergies Allergy Verified 06/15/25 15:58 Review of Systems 2 Constitutional: Constitutional: Reports as per HPI Eyes: Eyes: Reports as per HPI ENT: Reports as per HPI Cardiovascular: Cardiovascular: Reports as per HPI Respiratory: Respiratory: Reports as per HPI Gastrointestinal: Gastrointestinal: Reports as per HPI Genitourinary: Genitourinary: Reports as per HPI Musculoskeletal: Musculoskeletal: Reports as per HPI Integumentary/Breasts: Skin/Breast: Reports as per HPI Neurologic: Reports as per HPI Psychiatric: Psychiatric: Reports as per HPI Endocrine: Endocrine: Reports as per HPI Hematologic/Lymphatic: Hematologic/Lymphatic: Reports as per HPI Allergic/Immunologic: Allergic/Immunologic: Reports as per HPI PMF Past Medical History Attestation statement: The following information was validated with the patient. Source: old records reviewed and nursing notes reviewed Social History Social History Alcohol intake: never Advance Directives: No Advance Directives Information Provided: No Do you have a plan to hurt others: No Plan Physical Exam ED Vital Signs: Vital Signs - 24 hr 06/15/25 15:51 06/15/25 18:26 06/15/25 18:30 Temperature 97.1 F 97.3 F 97.3 F Pulse Rate 86 85 85 Respiratory Rate 18 18 18 Blood Pressure 180/89 H 158/87 H 158/87 H Pulse Oximetry 98 98 98 Oxygen Delivery Method Room Air Room Air Room Air BMI result Body Mass Index 40.1 Const General: cooperative, no acute distress, alert and awake Nutritional Appearance: well nourished Orientation/consciousness: patient oriented x3 HENMT Head: Yes normal to inspection and Yes atraumatic Ears: hearing grossly normal bilaterally and external ears normal General nose exam: Normal external nose present, no nasal discharge noted and no epistaxis Face and sinus: Yes normal facial exam, No abrasion and No laceration Mouth: Normal oral and palatal mucosa present, no drooling and no muffled voice Eyes General: appearance normal, both eyes and all related structures Periorbital: periorbital findings normal Eyelids: Yes eyelids normal Conjunctivae: conjunctivae normal Pupils: Equal, round and reactive pupils present EOM: EOMs intact bilaterally Neck Neck: Yes normal visual inspection and Yes full ROM Resp Effort & Inspection: normal respiratory effort and able to speak in complete sentences Neuro General: patient oriented x3, moves all extremities and CN's II-XI intact bilaterally Cranial nerves: Yes Equal, round and reactive pupils present Cognition (Neuro): normal cognition Extrem General: Yes normal to inspection, Yes full ROM and Yes capillary refill normal Psych Appearance: grossly normal Mental Status: mental status grossly normal Affect: normal affect Attitude: cooperative Thought process: Normal thought process present Thought content: Normal thought content present Insight: Good insight present (Psych) Course Course Course Narrative: Rapid medical examination performed in triage by Carlene Helm PA-C: Patient is a 40 year old assigned male at presenting to the emergency department with urinating blood. Patient states that he went to urinate today and he urinated blood. Detailed physical exam and review of systems are deferred to the retail equipment associate. Labs and imaging ordered. Patient placed back in the waiting room pending room availability and results. Medical Decision Making Medical Decision Making MDM Narrative: Patient is a 40 year old assigned male at with a history of diabetes and kidney stones presenting to the emergency department today after having blood in his urine. Patient's physical exam was as noted in the physical exam portion of this note. Patient's blood work showed a WBC count of 12.5 and glucose of 213 - otherwise unremarkable. Patient's elevated glucose is consistent with his diabetic status. Patient's elevated WBC count is likely reactive as he has no evidence of an infectious process. Patient's urine showed blood but no evidence of urinary tract infection. Patient's CT abd/pelvis showed no acute process. Patient's clinical presentation is most consistent with a passed kidney stone. I explained my physical exam findings as well as all test results to the patient. I answered all questions asked by the patient. I stressed the importance of the patient taking his medication as directed (either prescribed or as the over the counter packaging recommends). I stressed the importance of the patient following up with his primary care provider and the urology team. I stressed the importance of the patient returning to the emergency department immediately if his symptoms were to worsen or if he were to develop any dizziness, shortness of breath, difficulty breathing, chest pain, blurry vision, loss of vision, nausea, vomiting, abdominal pain, fever, chills, back pain, or any other complaints. Patient verbalized agreement and understanding with this treatment plan and discharge. Differential Diagnosis Differential Diagnoses: The differential diagnosis associated with the presentation includes Kidney stone Passed kidney stone UTI Hematuria Admission/Observation Consideration of admission/observation: Escalation of care including admission/observation considered Patient would have been admitted to the hospital had his work up had any findings where hospital admission was appropriate and his clinical presentation warranted hospital admission. Lab Data [facility] Lab Attestation statement: I reviewed the patient's lab results. My interpretation of these results are in the [facility] Rationale portion of this note. 06/15/25 17:30 06/15/25 17:30 Labs: Lab Results 06/15/25 Range/Units 17:30 WBC 12.5 H (4.8-10.8) X10*3/uL RBC 5.63 (4.60-5.80) X10*6/uL Hgb 16.7 (14.0-18.0) g/dl Hct 49.4 (42.0-52.0) % MCV 87.7 (80.0-98.0) fL MCH 29.7 (27.0-33.0) pg MCHC 33.8 (31.0-36.0) g/dl RDW 12.7 (11.0-16.0) % Plt Count 394 (160-400) X10*3/uL MPV 9.8 (9.4-12.4) fL Immature Gran % (Auto) 0.6 H (0.0-0.4) % Neut % (Auto) 64.9 (45-73) % Lymph % (Auto) 24.0 (20-40) % Rosebud % (Auto) 8.5 (2-11) % Eos % (Auto) 1.5 (0-4) % Baso % (Auto) 0.5 (0-2) % Lymph # (Auto) 3.0 (1.2-4.9) X10*3/uL Rosebud # (Auto) 1.1 (0.1-1.2) X10*3/uL Eos # (Auto) 0.2 (0.0-0.4) X10*3/uL Baso # (Auto) 0.1 (0.0-0.2) X10*3/uL Abs Immat Gran (auto) 0.07 H (0.00-0.03) X10*3/uL Absolute Neuts (auto) 8.1 (2.0-8.3) x10*3/uL Absolute Nucleated RBC 0.000 (0.0-0.012) X10*3/uL Nucleated RBC % (auto) 0.0 (0.0-0.2) /100WBC Sodium 139 (135-145) mmol/L Potassium 4.0 (3.3-5.1) mmol/L Chloride 105 (96-108) mmol/L Carbon Dioxide 24 (22-29) mmol/L Anion Gap 14 (12-20) BUN 13 (9-16) mg/dL Creatinine 0.86 (0.5-1.4) mg/dL Estim Creat Clear Calc 135.9 Estimated GFR > 60 Random Glucose 213 H (60-115) mg/dL Calcium 9.4 (8.4-10.2) mg/dL Total Bilirubin 0.6 (0.0-1.0) mg/dL AST 17 (5-37) U/L ALT 18 (0-40) U/L Alkaline Phosphatase 142 H (39-117) U/L Total Protein 7.8 (6.5-8.0) g/dL Albumin 4.7 (3.5-5.0) g/dL Urine Color Yellow Urine Appearance Clear Urine pH 6.5 (5.0-9.0) Ur Specific Louise >= 1.030 H (1.005-1.025) Urine Protein Negative (Neg-Trace) mg/dL Urine Glucose (UA) >=1000 H (Negative) mg/dL Urine Ketones Trace (Negative) mg/dL Urine Blood Large (3+) H (Negative) Urine Nitrite Negative (Negative) Ur Leukocyte Esterase Negative (Negative) Urine RBC >20 H (0-2) /HPF Urine WBC 6-10 H (0-5) /HPF Ur Squamous Epith Cells 0-2 (0-2) /HPF Urine Bacteria None Seen (None Seen) Hyaline Casts 0-2 (0-2) /LPF Independent Interpretation I performed an independent interpretation of an: CT Scan Interpretation: My interpretation is in agreement with the radiologist's impression of this imaging study as written below. Report Number: [id number]: Total DLP = 710.00 mGy-cm Reason for Exam: flank pain, hx of stones EXAMINATION: CT ABDOMEN AND PELVIS WITHOUT CONTRAST CLINICAL INFORMATION: Flank pain, hematuria, history of renal stones. COMPARISON: None available. TECHNIQUE: Multidetector volumetric imaging was performed from the superior aspect of the liver through the pubic symphysis. Sagittal and coronal reformatted images were obtained on the technologist's workstation. This CT examination was performed using dose optimization techniques as appropriate, variously including the following: *Automated exposure control *Adjustment of mA and/or kV according to patient size (this includes techniques or standardized protocols for targeted exams where dose is matched to indication/reason for exam; i.e. extremities or head) *Use of iterative reconstruction technique FINDINGS: LUNG BASES: The visualized lung bases are unremarkable. LIVER, GALLBLADDER, AND BILIARY TREE: The unenhanced liver is normal in size, shape, and attenuation. No focal hepatic lesion or biliary ductal dilatation is present. The gallbladder is contracted but otherwise appears normal. PANCREAS: Unremarkable. SPLEEN: Unremarkable. ADRENAL GLANDS: Unremarkable. KIDNEYS AND URETERS: The kidneys are normal in size, shape, and attenuation. No hydronephrosis, hydroureter, or calculi seen. No perinephric stranding. BLADDER: Unremarkable. GASTROINTESTINAL TRACT: The stomach is distended with a recent meal. The duodenum is normal. The small bowel is normal in caliber and course without wall thickening or dilatation. Normal appendix is visualized. Mobile cecum noted. The colon is normal in caliber, course, and appearance. No wall thickening or inflammation. The rectum has a normal appearance. PERITONEUM: No free air or ascites. ABDOMINAL WALL: Normal. There is no significant hernia present. LYMPH NODES: No abnormal lymphadenopathy is present. VASCULAR: Unremarkable. PELVIC VISCERA: The prostate and seminal vesicles are unremarkable. OSSEOUS STRUCTURES: No suspicious lytic or blastic bone lesions. Mild degenerative changes of the hip joints noted. CT/CT abdomen pelvis wo IV con IMPRESSION: 1. No urological calculus or obstruction identified. No acute findings in the abdomen or pelvis. 2. Mild degenerative changes in the bilateral hip joints. Electronically signed by: Hakeem Gasca MD 06/15/2025 04:48 PM [facility] Dictated By: Hakeem Gasca MD Signed By: Electronically signed by Hakeem Gasca MD 06/15/25 0178 Radiology Impression Discussion of test interpretation with radiology: I have reviewed the radiologist's reading. Chronic Conditions Patient?s care impacted by: Diabetes Discharge Plan Discharge Clinical Impression: Hematuria, Kidney calculus Patient Disposition: Home, Self-Care Instructions: Kidney Stones (ED), Hematuria (ED) Additional Instructions: Your work up today was reassuring there is no EMERGENT process going on. Given your history of something coming out of your urethra while urinating followed by blood, I am suspicious you passed a kidney stone. IF you are prescribed home medications and/or you are taking over the counter medications at home - it is very important you continue to do so as prescribed / directed unless told otherwise by a healthcare provider. Follow up with your primary care provider and the urology team. Do your best to stay well hydrated and rest. Return to the emergency department immediately if your symptoms worsen or if you develop any numbness, tingling, dizziness, shortness of breath, difficulty breathing, chest pain, blurry vision, loss of vision, nausea, vomiting, abdominal pain, fever, chills, back pain, or any other complaints. L If you do not have a primary care provider - call any of the below numbers to establish and follow up with a primary care provider. [facility] Primary Care ([place]) [phone] [place], [place] [address] [place], [address] [facility] Primary Care ([address] [place]) [phone] [address] [facility], [address] [place], [address] [facility] Primary Care ([address] [place]) [phone] [address] [facility], [address] [place], [address] [facility] Primary Care ([place]) [phone] [place] [address], [address] [facility], [address] [facility] Family Medicine [phone] [place] [address], [address] Please see the information below about our Patient Portal. If you are not yet enrolled in the [facility] Patient Portal, you will receive an enrollment email invitation following your visit to any [facility] setting. You may also self-enroll in the Patient Portal by visiting our website: [email or web address] The following information is required to access the Patient Portal: - Your [facility] Medical Record Number - Your personal home email address (must match what is in your electronic medical record, Registration staff can assist with this) - Name - Date of Capabilities of the Patient Portal: - Message some providers - View upcoming appointments - Access your health summary, medical history, and visit history - View current conditions and allergies - View procedure and lab results - View your medications, including guidelines, side effects, and precautions - Complete pre-appointment questionnaires requested by your provider - Ready summary reports of your office visits and procedures To access the Patient Portal Mobile [employer], follow these directions: - Search [employer] in the [employer] Store or [employer] Store - Download the [employer] - Search for [facility] - Enter your login/password Prescriptions: No Action doxycycline hyclate 100 mg tablet 100 mg PO BID Qty: 20 0RF prednisone 20 mg tablet 60 mg PO DAILY 5 Days Qty: 15 0RF Referrals: Randal Ledezma DO [Primary Care Provider, Medical] [facility] Urology Services [Provider Group, Urology] Referral Note: [facility] Urology should be contacting you in 2 business days to schedule an appointment. If you don't hear from them within 2 business days, please call to establish and follow up with them. Interventions: ED Discharge Assessment Last Done: 06/15/25 18:30 Discharge Date/Time: 06/15/25 18:30 Print Language: Finnish
[2025-06-15 17:37] LABS: MANUAL DIFF FLAG NO
[2025-06-15 17:39] LABS: Hematocrit 49.4 % (42.0-52.0); Hemoglobin 16.7 g/dl (14.0-18.0); Imm Gran Abs Auto 0.07 X10*3/uL (0.00-0.03); Imm Gran Pct Auto 0.6 % (0.0-0.4); Lymphocytes Absolute Auto 3.0 X10*3/uL (1.2-4.9); Mean Corpuscular HGB Conc 33.8 g/dl (31.0-36.0); Mean Corpuscular Hemoglobin 29.7 pg (27.0-33.0); Mean Corpuscular Volume 87.7 fL (80.0-98.0); NRBC Abs Auto 0.000 X10*3/uL (0.0-0.012); NRBC Pct Auto 0.0 /100WBC (0.0-0.2); Platelet Count 394 X10*3/uL (160-400); Red Blood Count 5.63 X10*6/uL (4.60-5.80); White Blood Count 12.5 X10*3/uL (4.8-10.8)
[2025-06-15 17:40] LABS: Appearance Urine Clear; Glucose Urine UA >=1000 mg/dL (Negative); PH 6.5 (5.0-9.0); Specific Gravity - Urine >= 1.030 (1.005-1.025); UMIC TRIGGER UACC YES
[2025-06-15 17:47] LABS: UACC Culture Trigger YES
[2025-06-15 17:56] LABS: Alanine Aminotransferase 18 U/L (0-40); Albumin Level 4.7 g/dL (3.5-5.0); Alkaline Phosphatase 142 U/L (39-117); Anion Gap 14 (12-20); Aspartate Amino Transferase 17 U/L (5-37); Blood Urea Nitrogen 13 mg/dL (9-16); Calcium 9.4 mg/dL (8.4-10.2); Carbon Dioxide 24 mmol/L (22-29); Chloride 105 mmol/L (96-108); Creatinine Clr Calc Pharmacy 135.9; Estimated Glomerular Filt Rate > 60; Potassium 4.0 mmol/L (3.3-5.1); Sodium 139 mmol/L (135-145); Total Protein 7.8 g/dL (6.5-8.0)
[2025-06-15 18:26] VITALS: BP 158/87; PULSE 85; RESP 18; TEMP 36.3; O2SAT 98
[2025-06-15 18:30] VITALS: BP 158/87; PULSE 85; RESP 18; TEMP 36.3; O2SAT 98
--- OUTSIDE RECORDS SUMMARY | 2025-06-15 20:04 | XMS_ITS | Clinical Summary ---
Author Organization [facility] Address [address] [address] Phone Care Team Providers Care Supervisory Cbp Officer Name Role Phone Conor Hardwick Jp, MD Primary Care Provider [phone] Allergies No known active allergies Medications citalopram [...] this topic Medical Devices Implanted Type Area Cambering Machine Operator Device Identifier Shelf Expiration Date Model / Serial / Lot Plate Bone 420mm Button Sterile Titanium 7 Hole Ea - [id number] Implanted:Qty: 1 on 11/16/2017 by César Laguerre MD at [facility] NODATA Left: Shoulder SYNTHES 482.823 / / Description:no lot# or exp d ate Head Humeral Simpliciti 48 X 18 - [id number] Implanted:Qty: 1 on 11/16/2017 by César Laguerre MD at [facility] Left: Shoulder [employer] 12/23/2021 [id number] / [id number] / Nucleus Cementless Sz3 Simpliciti Ea - [id number] Implanted:Qty: 1 on 11/16/2017 by César Laguerre MD at [facility] Left: Shoulder [employer] 05/17/2022 [id number] / [id number] / Aequalis Perform Glenoid Cortiloc M40 Shoulder 02 Nc - [id number] Implanted:Qty: 1 on 11/16/2017 by César Laguerre MD at [facility] Left: Shoulder [employer] 12/18/2021 [id number] / [id number] / Cement Bone 40gr Palacos R Plus G Single Dose Daron/1ea - [id number] Implanted:Qty: 1 on 11/16/2017 by César Laguerre MD at [facility] Left: Shoulder BRAYDEN / DIV OF BRISTOL [employer] 11/08/2020 [id number] / [id number] Procedures Procedure Name Priority Date/Time Associated Diagnosis Comments BASIC METABOLIC PANEL (BMP) Routine 11/17/2017 4:40 AM EDT from Last 3 Months or Most Recently Relevant to Health Maintenance Results * (ABNORMAL) Basic metabolic panel (11/17/2017 4:40 AM EDT) SODIUM 134(L) 135 - 145 mmol/L [facility] POTASSIUM 4.2 3.4 - 5.0 mmol/L [facility] CHLORIDE 98 98 - 108 mmol/L [facility] CO2 21(L) 23 - 32 mmol/L [facility] BUN 9 8 - 25 mg/dL [facility] CREATININE 0.85 0.60 - 1.50 mg/dL [facility] GLUCOSE 162(H) 70 - 110 mg/dL [facility] CALCIUM 8.7 8.5 - 10.5 mg/dL [facility] EGFR 116 >59 mL/min/1. 73m2 [facility] Comment:If patient is black, multiply result by 1.159. Estimated glomerular filtration rate calculated using the CKD-EPI equation. ANION GAP 15 3 - 17 mmol/L [facility] Blood 11/17/2017 4:40 AM EDT 11/17/2017 5:34 AM EDT us César Laguerre MD LAB BLOOD BKR ORDERABLES Final Result [address] [address] from Last 3 Months or Most Recently Relevant to Health Maintenance [facility] [employer] ESSENTIAL [facility] SIPphone MCO SIPphone O [facility] MCO Advance Directives For more information, please contact: [phone] (9AM - 5PM [facility], Wednesday-Wednesday) * Full Code (Presumed) (Latest Code Status on File) Date Activated Date Inactivated Comments 11/16/2017 5:29 PM 11/17/2017 4:23 PM Care Teams Supervisory Cbp Officer Relationship Specialty Start Date End Date Conor Hardwick Jp, MD [email or web address] PCP - General Orthopedic Surgery 05/11/17 Additional Source Comments The information contained in this document represents components of the legal health record. It is not the complete legal health record.[facility]
--- OUTSIDE RECORDS SUMMARY | 2025-06-15 20:04 | XMS_ITS | Encounter Summary ---
Author Organization [facility] Address [address] [place] [address] Phone Care Team Providers Care Business Performance Manager Name Role Phone Randal Ledezma DO Primary Care Provide r Conor Hardwick Jp, MD Primary Care Provider [phone] Encounter Details Date Type Department Care Team (Late st Contact Info) Description 04/28/2017 Procedure Pass [facility] [address] [place] [address] Social History Tobacco Use Types Packs/Day Years [...] on filedocumented in this encounter Care Teams Business Performance Manager Relationship Specialty Start Date End Date Randal Ledezma DO [address] [place] [id number] PCP - General Internal Medicine 02/11/17 05/10/17 Conor Hardwick Jp, MD [address] [place] [id number] [email or web address] PCP - General Orthopedic Surgery 05/11/17 documented as of this encounter Additional Source Comments The information contained in this document represents components of the legal health record. It is not the complete legal health record.[facility]
--- OUTSIDE RECORDS SUMMARY | 2025-06-15 20:04 | XMS_ITS | Encounter Summary ---
Author Organization [facility] Address [address] [place] [address] Phone Care Team Providers Care Customer Relations Representative Name Role Phone Conor Hardwick Jp, MD Primary Care Provider [phone] Encounter Details Date Type Department Care Team (Late st Contact Info) Description 06/02/2017 Procedure Pass [facility], [place] [address] [facility], [address] [place] [address] Social History Tobacco Use Types Packs/Day Years [...] on filedocumented in this encounter Care Teams Customer Relations Representative Relationship Specialty Start Date End Date Conor Hardwick Jp, MD [email or web address] PCP - General Orthopedic Surgery 05/11/17 documented as of this encounter Additional Source Comments The information contained in this document represents components of the legal health record. It is not the complete legal health record.[facility]
--- OUTSIDE RECORDS SUMMARY | 2025-06-15 20:04 | XMS_ITS | Encounter Summary ---
Author Organization [facility] Address [address] [place] [address] Phone Care Team Providers Care Home Energy Auditor Name Role Phone Randal Ledezma DO Primary Care Provide r Conor Hardwick Jp, MD Primary Care Provider [phone] Encounter Details Date Type Department Care Team (Late st Contact Info) Description 03/12/2017 Procedure Pass [facility] [address] [place] [address] Social History Tobacco Use Types Packs/Day Years [...] on filedocumented in this encounter Care Teams Home Energy Auditor Relationship Specialty Start Date End Date Randal Ledezma DO [address] [address] PCP - General Internal Medicine 02/11/17 05/10/17 Conor Hardwick Jp, MD [address] [place] [address] 1 [place] [address] [email or web address] PCP - General Orthopedic Surgery 10/31/17 documented as of this encounter Additional Source Comments The information contained in this document represents components of the legal health record. It is not the complete legal health record.[facility]
--- OUTSIDE RECORDS SUMMARY | 2025-06-15 20:04 | XMS_ITS | Clinical Summary ---
Author Organization [facility] Address [address] [place] [address] Care Team Providers Care Electric Wirer Name Role Phone Unavailable Primary Care Provider [...] Depression Screening 07/12/2024 COVID-19 Vaccine (1 - 2024-2 6 season) 2025 Influenza Vaccine (#1) 2025 RSV [...]
--- OUTSIDE RECORDS SUMMARY | 2025-06-15 20:04 | XMS_ITS | Encounter Summary ---
Author Organization [facility] Address [address] [place] [address] Phone Care Team Providers Care Hog Killer Name Role Phone Conor Hardwick Jp, MD Primary Care Provider [phone] Encounter Details Date Type Department Care Team (Late st Contact Info) Description 11/16/2017 Procedure Pass [facility] PERIOPERATIVE DEPT [address] [place] [address] Social History Tobacco Use Types Packs/Day Years [...] on filedocumented in this encounter Care Teams Hog Killer Relationship Specialty Start Date End Date Conor Hardwick Jp, MD [email or web address] PCP - General Orthopedic Surgery 05/11/17 documented as of this encounter Additional Source Comments The information contained in this document represents components of the legal health record. It is not the complete legal health record.[facility]
--- OUTSIDE RECORDS SUMMARY | 2025-06-15 20:04 | XMS_ITS | Data Portability ---
Author Organization [facility] [address] Address [address] [place] [address] Assessment No assessment recorded. Plan of Treatment Reminders Order Date Submit Date Provider Last Modified By Organization Details Last Modified Time Details Appointments None recorded. Lab None recorded. Referral None recorded. Procedures None recorded. Surgeries None recorded. Imaging None recorded. Medication Orders cephalexin 500 mg capsule 2022 023 [facility] #[id number], [address] [place], [address], 11:09:57 Patient TargetsNo targets recorded. Patient Instructions Encounter Date Encounter Id Patient Instructions Last Modified By Organization Details Last Modified Time 09/12/2022 [id number] A skin abscess i s a bacterial [...] your doctor if you can take an wkvs-dav-gzmelpe medicine. Keep your bandage clean and dry. [...] Address Organization Details Recorded Time Essential hypertension 93438073 Active 2022 IRIS COUVERTRAMYA R null, [place] - [facility] 3 10:32:03 Diabetes mellitus 26418021 Active 2022 IRIS COUVERTRAMYA R null, PA [...] temperature Respiratory rate Heart rate Oxygen saturation Systolic And Diastolic Provider Name and Address Organization Details Last Updated DateTime 3 175.26 cm 36.9 kg/m2 723318. 09 g 98.5 [degF] 20 /min 84 /min 97 % 146/88 mm[Hg] MAMTA Simon PA - [facility] 10:36:34 Social History Question Answer Notes LastModified by [employer] Details LastModified Time Tobacco Smoking Status Never [...] Functional Status Question Answer Note LastModified by [employer] Details LastModified Time Do you use any [...] ICD10 Code Diagnosis IMO Codes Diagnosis Note [id number] [address] [place] [address] 09/11/2017 10:51:06 09/11/2017 12:13:33 [id number] [address] [place] [address] 06/01/2020 10:00:02 06/01/2020 14:20:20 [id number] [address] [place] [address] 07/25/2018 13:37:47 07/25/2018 14:19:35 [id number] [address] [place] [address] 10/12/2020 16:21:31 10/12/2020 16:46:15 [id number] [address] [place] [address] 08/09/2020 11:59:12 08/09/2020 14:19:18 [id number] Ovidio Coker NP [address] [address] 09/12/2022 09:15:19 09/12/2022 11:15:11 Cellulitis and abscess of abdominal wall [id number] L02.211 Health Concerns Section Related Observation LastModified by Organization Detai ls LastModified Time None Recorded Concern Status LastModified by Organization Details LastModified Time None Recorded Advance Directives Directive None Recorded Payers Insurance Date Sequence Insurance Name Policy Number Policy العلي Covered Member ID العلي Member ID Guarantor Name 09/12/2022 1 [facility] [employer] - HEALTH NET PLAN (MEDICAID HMO) [id number] Kareem Zelaya [id number] Kareem Zelaya Notes Date Note Type Note Provider Name and Address Organization Details Recorded Time 09/12/2022 text/html small abscess below umbilicus measuring 3 x 3 cm x 4-5 days. erythema, tender upon palpation , no drainage . patient is diabetic. Ovidio Coker NP [address] [place], [address], [place] - [facility] 09/12/2022 11:10:15
== END 2025-06-15 18:30 | disposition home or self-care (01) ==
PROVIDERS: Physician Assistant Medical; Emergency Provider Student in an Organized Health Care Education/Training Program; PCP Internal Medicine
DX: R31.9 Hematuria, unspecified (principal); R10.22 Pelvic and perineal pain left side; Z79.899 Other long term (current) drug therapy; Z87.442 Personal history of urinary calculi
CPT/HCPCS: 36415; 74176; 80053; 81001; 85025; 87086; 99283

== ENCOUNTER → 2025-06-15 15:52 | Outpatient (BNV) | payer OTHER, SELFPAY | PROVIDERS: PCP Internal Medicine; Visit Provider Radiology Diagnostic Radiology | DX: R10.A0 Flank pain, unspecified side (principal); R31.9 Hematuria, unspecified; M16.0 Bilateral primary osteoarthritis of hip | CPT/HCPCS: 74176 ==